=== PATIENT | female | born 1980 | race Caucasian/White ===

== ENCOUNTER → 2018-03-20 15:18 | Outpatient (CLI) | payer OTHER, MEDICAID, SELFPAY | DX: Z53.9 Procedure and treatment not carried out, unspecified reason (principal) | CPT/HCPCS: 87086 ==

== ENCOUNTER → 2018-03-20 15:51 | Outpatient (CLI) | payer OTHER, MEDICAID, SELFPAY ==
[2018-03-20 16:56] LABS: Appearance Urine UA CLEAR; Bilirubin Urine UA NEGATIVE (NEGATIVE); Color Urine UA YELLOW; Glucose Urine UA NEGATIVE (Normal); Ketones Urine UA TRACE (NEGATIVE); Leukocyte Esterase Urine UA NEGATIVE (NEGATIVE); Nitrite Urine UA Negative (Negative); Occult Blood Urine UA NEGATIVE (Negative); Protein Urine UA NEGATIVE (Negative); Specific Gravity Urine UA >=1.030 (1.000-1.035); Urobilinogen Urine UA 0.2 E.U./dL (0.2)
[2018-03-20 17:43] LABS: Add Manual Diff / Slide Review NO; Basophils Percent Auto 0.5 % (0-2); Eosinophils Percent Auto 3.8 % (2-4); Hemoglobin 13.2 g/dL (12.0-16.0); Lymphocytes Percent Auto 16.9 % (25-40); Mean Corpuscular HGB Conc 35.6 % (30-36); Mean Corpuscular Hemoglobin 32.6 PG (26-34); Mean Corpuscular Volume 91.7 fL (80-100); Neutrophils Absolute Auto 6100 /uL (3000-5900); Neutrophils Percent Auto 72.8 % (50-75); Platelet Count 236 X10^3/uL (150-400); Red Blood Cell Count 4.03 X10^6/uL (4.0-5.2); Red Cell Distribution Width 12.9 % (11.6-14.8); White Blood Cell Count 8.4 X10^3/uL (4.5-11.0)
[2018-03-20 18:54] LABS: Free T4, Direct Thyroxine 1.18 ng/dL (0.78-2.19)
[2018-03-20 19:08] LABS: Thyroid Stimulating Hormone 2.43 uIU/mL (0.47-4.68)
[2018-03-20 19:23] LABS: Hepatitis B Surface Antigen NEGATIVE s/c (NEGATIVE)
[2018-03-20 19:51] LABS: HIV 1 and 2 Antibody NEGATIVE (NEGATIVE); Hep C Virus Ab w/Reflex Quant NEGATIVE s/c (NEGATIVE)
[2018-03-22 14:52] LABS: HSV 2 IGG AB 1.19 index (< 0.90)
== END ==
DX: Z34.81 Encounter for supervision of other normal pregnancy, first trimester (principal)
CPT/HCPCS: 36415; 80055; 81003; 84439; 84443; 86695; 86696; 86703; 86787; 86803; 86850; 86900; 86901; 87086

== ENCOUNTER → 2018-04-10 13:44 | Outpatient (CLI) | payer OTHER, MEDICAID, SELFPAY ==
[2018-04-12 15:10] LABS: Sequential Screen 1st Trimeste FINAL REPORT PENDING
== END ==
DX: Z36.0 Encounter for antenatal screening for chromosomal anomalies (principal); Z34.81 Encounter for supervision of other normal pregnancy, first trimester; Z3A.12 12 weeks gestation of pregnancy
CPT/HCPCS: 36415; 84163; 84702

== ENCOUNTER → 2018-05-22 17:11 | Outpatient (CLI) | payer OTHER, MEDICAID, SELFPAY | DX: Z36.89 Encounter for other specified antenatal screening (principal); Z34.92 Encounter for supervision of normal pregnancy, unspecified, second trimester; Z3A.19 19 weeks gestation of pregnancy ==

== ENCOUNTER → 2018-05-30 14:12 | Outpatient (CLI) | payer OTHER, MEDICAID, SELFPAY | DX: Z36.9 Encounter for antenatal screening, unspecified (principal); Z3A.19 19 weeks gestation of pregnancy | CPT/HCPCS: 86336 ==

== ENCOUNTER → 2018-09-26 11:10 | Outpatient (CLI) | payer OTHER, MEDICAID, SELFPAY ==
[2018-09-27 14:09] LABS: Strep Grp B PCR NEG for Grp B Strep
== END ==
DX: Z34.83 Encounter for supervision of other normal pregnancy, third trimester (principal)
CPT/HCPCS: 87653

== ENCOUNTER 2018-10-23 11:54 | Outpatient (CLI) | payer OTHER, MEDICAID, SELFPAY | END 2018-10-23 12:45 | disposition home or self-care (01) | LOC: LABOR 12:32 → OB 15:50 | DX: O48.0 Post-term pregnancy (principal); Z3A.40 40 weeks gestation of pregnancy | CPT/HCPCS: 59025; G0378; G0379 ==

== ENCOUNTER 2018-10-24 06:51 | Inpatient (IN) | payer OTHER, MEDICAID, SELFPAY ==
--- NOTE | 2018-10-24 07:17 | PM.OBHP.1 ---
OB HPI History of Present Condition Chief complaint: INDUCTION Narrative: Jerilyn Menchaca is a 38 year old female five para three AB1 with an MONIKA of 10/19/2018 established by nine week ultrasound. The patient is now 40 and four 7th weeks . Patient is admitted for postdatism and [place] [facility]. Patient was evaluated previously had a Wild score nine. The patient's was uneventful. She remained normotensive throughout the . Her weight went went from 174 lb to 203 lb. Urines remained negative proved was and protein. She is blood type A-positive antibody screen negative. STD evaluations are all negative. 1st and 2nd trimester screening were negative. At 30 weeks her matter crit was 33%. Her glucose screen was -1 hour. Her group B strep was negative. Evaluation Evaluation Baseline heart rate: 130 Variability: Moderate (11-25) monitor accelerations: Present monitor decelerations: Absent Contraction Frequency (minutes): 5 Uterine Contraction Intensity: Mild Category of Tracing: I Non-invasive Membranes Rupture Test: negative [facility] Medical History Abnormal Pap smear of cervix (Chronic ~2007) Carpal tunnel syndrome (Chronic ~2013) GERD (gastroesophageal reflux disease) (Chronic) Hay fever (Chronic) Hemorrhoid (Chronic ~2009) Hyperthyroidism (Chronic) Scoliosis (Chronic) Chicken pox (Resolved) Family History Grandmother Age: 78 Hypertension Mother Age: 58 Hypertension Grandfather No problems noted. Grandfather No problems noted. Grandmother No problems noted. Meds Home Medications Medication Instructions Recorded Confirmed Type levothyroxine 100 mcg PO QAM #0 11/29/17 History omeprazole 20 mg capsule,delayed 20 mg PO DAILY #30 cap 09/29/18 Rx release Allergies Allergy/AdvReac Type Severity Reaction Status Date / Time amoxicillin [AMOXICILLIN] Allergy Mild hives Unverified 01/25/18 12:12 celecoxib [From Celebrex] Allergy Unknown Unverified 01/25/18 12:12 Review of Systems Review of Systems All systems reviewed & are unremarkable except as noted in HPI and below Exam Const General: cooperative and healthy appearing HENMT Head: normal to inspection Ears: hearing grossly normal bilaterally Nose: external nose normal Face and sinus: normal facial exam Mouth: oral mucosae normal, lip normal, tongue normal and moist mucous membranes Teeth and gingiva: dentition normal Throat: posterior oropharynx normal Eyes General: appearance normal, both eyes and all related structures Neck Neck: normal visual inspection and full ROM Chest Chest: normal inspection of the chest and normal palpation of entire chest wall Breast inspection: normal inspection of the breasts and normal inspection of the axillae Breast Palpation: normal palpation of the breasts and normal palpation of the axillae Resp Effort & Inspection: normal respiratory effort Auscultation: clear to auscultation bilaterally Cardio Palpation: normal PMI Rate: regular rate Rhythm: regular rhythm Heart Sounds: S1 normal and S2 normal GI Inspection: normal to inspection Palpation: soft and no hepatosplenomegaly Percussion: normal to percussion Auscultation: normal bowel sounds OB/External & Speculum: external exam normal Uterus Location (Fundal Height): 38 Presentation: vertex Estimated Weight (lbs): 7 Back/Spine/Pelvis Thoracic/Lumbar Spine: thoracic and lumbar spine normal to inspection Skin General: no rashes or lesions noted Neuro General: alert, oriented x3, tone normal and moves all extremities Cognition: normal cognition Speech: speech normal Gait: normal gait Motor: muscle tone normal throughout Sensory Exam: no sensory deficits noted Extrem General: normal to inspection and normal exam except as noted Psych Appearance: grossly normal and well kempt Mental Status: mental status grossly normal Speech and Movement: speech and movement normal Assessment and Plan (1) 40 weeks gestation of : Onset Date: ~10/24/18 Current visit: Yes Status: Acute Patient is [address] [facility] and is having contractions with small amount cervical dilatation. Plan is for induction of labor with Pitocin and rupture of membranes.
--- NOTE | 2018-10-24 07:28 | P.HPOB_ITS ---
OB HPI History of Present Condition Chief complaint: INDUCTION Narrative: Jerilyn Menchaca is a 38 year old female five para three AB1 with an MONIKA of 10/19/2018 established by nine week ultrasound. The patient is now 40 and four 7th weeks . Patient is admitted for postdatism and [place] [facility]. Patient was evaluated previously had a Wild score nine. The patient's was uneventful. She remained normotensive throughout the . Her weight went went from 174 lb to 203 lb. Urines remained negative proved was and protein. She is blood type A-positive antibody screen negative. STD evaluations are all negative. 1st and 2nd trimester screening were negative. At 30 weeks her matter crit was 33%. Her glucose screen was -1 hour. Her group B strep was negative. Evaluation Evaluation Baseline heart rate: 130 Variability: Moderate (11-25) monitor accelerations: Present monitor decelerations: Absent Contraction Frequency (minutes): 5 Uterine Contraction Intensity: Mild Category of Tracing: I Non-invasive Membranes Rupture Test: negative [facility] Medical History Abnormal Pap smear of cervix (Chronic ~2007) Carpal tunnel syndrome (Chronic ~2013) GERD (gastroesophageal reflux disease) (Chronic) Hay fever (Chronic) Hemorrhoid (Chronic ~2009) Hyperthyroidism (Chronic) Scoliosis (Chronic) Chicken pox (Resolved) Family History Grandmother Age: 78 Hypertension Mother Age: 58 Hypertension Grandfather No problems noted. Grandfather No problems noted. Grandmother No problems noted. Meds Home Medications Medication Instructions Recorded Confirmed Type levothyroxine 100 mcg PO QAM #0 11/29/17 History omeprazole 20 mg capsule,delayed 20 mg PO DAILY #30 cap 09/29/18 Rx release Allergies Allergy/AdvReac Type Severity Reaction Status Date / Time amoxicillin [AMOXICILLIN] Allergy Mild hives Unverified 01/25/18 12:12 celecoxib [From Celebrex] Allergy Unknown Unverified 01/25/18 12:12 Review of Systems Review of Systems All systems reviewed & are unremarkable except as noted in HPI and below Exam Const General: cooperative and healthy appearing HENMT Head: normal to inspection Ears: hearing grossly normal bilaterally Nose: external nose normal Face and sinus: normal facial exam Mouth: oral mucosae normal, lip normal, tongue normal and moist mucous membranes Teeth and gingiva: dentition normal Throat: posterior oropharynx normal Eyes General: appearance normal, both eyes and all related structures Neck Neck: normal visual inspection and full ROM Chest Chest: normal inspection of the chest and normal palpation of entire chest wall Breast inspection: normal inspection of the breasts and normal inspection of the axillae Breast Palpation: normal palpation of the breasts and normal palpation of the axillae Resp Effort & Inspection: normal respiratory effort Auscultation: clear to auscultation bilaterally Cardio Palpation: normal PMI Rate: regular rate Rhythm: regular rhythm Heart Sounds: S1 normal and S2 normal GI Inspection: normal to inspection Palpation: soft and no hepatosplenomegaly Percussion: normal to percussion Auscultation: normal bowel sounds OB/External & Speculum: external exam normal Uterus Location (Fundal Height): 38 Presentation: vertex Estimated Weight (lbs): 7 Back/Spine/Pelvis Thoracic/Lumbar Spine: thoracic and lumbar spine normal to inspection Skin General: no rashes or lesions noted Neuro General: alert, oriented x3, tone normal and moves all extremities Cognition: normal cognition Speech: speech normal Gait: normal gait Motor: muscle tone normal throughout Sensory Exam: no sensory deficits noted Extrem General: normal to inspection and normal exam except as noted Psych Appearance: grossly normal and well kempt Mental Status: mental status grossly normal Speech and Movement: speech and movement normal Assessment and Plan (1) 40 weeks gestation of : Onset Date: ~10/24/18 Current visit: Yes Status: Acute Patient is [address] [facility] and is having contractions with small amount cervical dilatation. Plan is for induction of labor with Pitocin and rupture of membranes.
[2018-10-24] MEDS: OXYTOCIN PREMIX 30 UNIT/500 ML PLAST..BAG IV (07:52)
[2018-10-24 08:10] LABS: Add Manual Diff / Slide Review NO; Basophils Percent Auto 0.2 % (0-2); Eosinophils Percent Auto 1.9 % (2-4); Hematocrit 37.6 % (36-46); Hemoglobin 12.7 g/dL (12.0-16.0); Lymphocytes Percent Auto 11.3 % (25-40); Mean Corpuscular HGB Conc 33.8 % (30-36); Mean Corpuscular Hemoglobin 32.3 PG (26-34); Mean Corpuscular Volume 95.6 fL (80-100); Monocytes Percent Auto 4.8 % (3-14); Neutrophils Absolute Auto 10900 /uL (1500-7000); Neutrophils Percent Auto 81.8 % (50-75); Platelet Count 200 X10^3/uL (150-400); Red Blood Cell Count 3.93 X10^6/uL (4.0-5.2); Red Cell Distribution Width 13.6 % (11.6-14.8); White Blood Cell Count 13.3 X10^3/uL (4.5-11.0)
--- NOTE | 2018-10-24 11:34 | PM.OBPRVD ---
Delivery date: 10/24/18 Induction method: per pitocin protocol Delivery augmentation: rupture of membranes Delivery monitor: external FHT Route of delivery: Episiotomy description: None Laceration description: None Estimated blood loss (mL): 300 Anesthesia type: Epidural Complications: Retained placenta with manual extraction Narrative: PROCEDURE: at 40w5d presented for IOL and was admitted to Labor and Delivery. The patient progressed through the 1st stage over 3 hours. The pt received pitocin for induction, with AROM performed with production of clear fluid. Pain was controlled with an epidural. The patient progressed through the 2nd stage over 17 minutes and delivered after 2 pushes a viable female infant with APGARs 9/9 at 11:02 via . The cord was clamped and cut after it stopped pulsing. The perineum and vagina were inspected with no lacerations noted. Gentle traction was applied to the umbilical cord to help with delivery of the placenta. Shearing could be felt along the cord, and so no further traction was applied. A few minutes later, additional gentle traction was applied and the cord avulsed from the placenta with a large portion of the amniotic sac attached to the cord. The placenta was then manually removed. After removal, a moist lap was used to swipe the entirety of the uterus to ensure no retained products were present. The uterine wall felt smooth. The pts uterus was noted to be very firm with no vaginal bleeding. She will receive antibiotic prophylaxis due to the prolonged manual extraction. PREPROCEDURE DIAGNOSIS: Intrauterine at 40w5d GBS negative RH positive POSTPROCEDURE DIAGNOSIS: Intrauterine at 40w5d, delivered Same as preprocedure Cord avulsion with retained products of conception, manual extraction ROM APPEARANCE: Clear BABY A DELIVERY TIME: 11:02 BABY A OUTCOME: Viable BABY A WEIGHT: 7lb8.74oz (3423g) BABY A NUCHAL CORD: x1 with body cord BABY A CORD GASES OBTAINED: None PLACENTA DELIVERY TIME: 11:15 PLACENTA APPEARANCE: Fragmented but fully present Baby 1: Infant gender: Female Presentation: vertex position: Right Occiput Anterior Placenta delivery description: Manual Removal cord vessel description: 3 Vessels score (1 min): 9 score (5 min): 9 Plan for aftercare: 2g Ancef now due to prolonged manual extraction Normal care Monitor bleeding carefully support
[2018-10-24] MEDS: CEFAZOLIN 2 GM/100 ML FROZ.PIGGY IV (13:30)
[2018-10-24 13:47] VITALS: BP 124/77
[2018-10-24] MEDS: OXYCODONE/ACETAMINOPHEN 5/325 TABLET 1 TAB PO (16:00)
[2018-10-24] MEDS: OXYCODONE/ACETAMINOPHEN 5/325 TABLET 2 TAB PO ×2 (16:08→20:02)
[2018-10-24] MEDS: IBUPROFEN 600 MG TABLET PO ×2 (16:10→22:09)
[2018-10-25] MEDS: IBUPROFEN 600 MG TABLET PO ×2 (04:16→10:26)
[2018-10-25] MEDS: OXYCODONE/ACETAMINOPHEN 5/325 TABLET 1 TAB PO ×2 (05:05→08:58)
[2018-10-25 05:55] LABS: Add Manual Diff / Slide Review NO; Basophils Percent Auto 0.4 % (0-2); Eosinophils Percent Auto 2.7 % (2-4); Hematocrit 33.6 % (36-46); Hemoglobin 11.7 g/dL (12.0-16.0); Lymphocytes Percent Auto 12.2 % (25-40); Mean Corpuscular HGB Conc 34.8 % (30-36); Mean Corpuscular Hemoglobin 32.9 PG (26-34); Mean Corpuscular Volume 94.5 fL (80-100); Monocytes Percent Auto 5.9 % (3-14); Neutrophils Absolute Auto 11100 /uL (1500-7000); Neutrophils Percent Auto 78.8 % (50-75); Platelet Count 177 X10^3/uL (150-400); Red Blood Cell Count 3.56 X10^6/uL (4.0-5.2); Red Cell Distribution Width 13.2 % (11.6-14.8); White Blood Cell Count 14.2 X10^3/uL (4.5-11.0)
[2018-10-25] MEDS: DOCUSATE 250 MG CAPSULE PO (08:58)
[2018-10-25] MEDS: PRENATAL VIT,CALC/IRON/FOLIC 1 TABLET 1 TAB PO (08:58)
--- NOTE | 2018-10-25 12:02 | PM.OBDS.1 ---
Discharge Providers Date of admission: 10/24/18 06:51 Primary care physician: Terry Kate MD Consults: 10/24/18 12:06 Consult to Fish Technologist Routine Comment: Discharge provider: Terry Kate MD Discharge Date: 10/25/18 Summary Date Patient Seen: 10/25/18 Time Patient Seen: 12:03 Hospital Course: The patient is a 38-year-old white female five para four AB1. Patient was at almost 41 weeks and [place] with intermittent contractions for induction of labor. Membranes were ruptured and Pitocin was begun. She had a rapid 3 hr labor and spontaneous vaginal delivery of a live-born with scores of nine at 1 min nine at 5 min in good condition. There was no PCI item ear perineal tear. The placenta was retained and removed manually. The estimated blood loss is as documented in the medical record. Post delivery the patient has done well. She has had minimal bleeding. She is voiding and good volumes. She is taking p.o.. She has ambulate Peripartum Data Infant Delivery Method: Natural Vaginal Laceration description: None Procedures: Manual removal of placenta complications: none Discharge Diagnosis (1) 40 weeks gestation of : Status: Acute Status at Discharge Cognitive/behavioral status at discharge: Normal Functional status at discharge: independent ambulation Overall status at discharge: patient is back to baseline Time Spent with Patient Total time spent providing and/or coordinating discharge services: Less than 30 minutes Objective Labs Result Diagrams: 10/25/18 05:42 Labs: Laboratory Results - last 24 hr 10/25/18 05:42 WBC 14.2 H RBC 3.56 L Hgb 11.7 L Hct 33.6 L MCV 94.5 MCH 32.9 MCHC 34.8 RDW 13.2 Plt Count 177 Neut % (Auto) 78.8 H Lymph % (Auto) 12.2 L [place] % (Auto) 5.9 Eos % (Auto) 2.7 Baso % (Auto) 0.4 Neut # (Auto) 55729 H Discharge Plan Discharge Plan Patient Disposition: Home Discharge Med Rec/Prescriptions Prescriptions: New ibuprofen 600 mg Tablet 600 mg PO Q6H PRN (Reason: Pain, Mild (1-3)) Qty: 14 RF: 0 docusate sodium 250 mg Capsule 250 mg PO DAILY Qty: 14 RF: 0 lanolin [[id number]] Cream 1 applic Topical PRN PRN (Reason: Tenderness) Qty: 7 RF: 0 oxycodone-acetaminophen 5-325 mg Tablet 2 tab PO Q4HR PRN (Reason: pain) Qty: 14 RF: 0 [id number] [Prenatabs Rx] 29 mg iron- 1 mg Tablet 1 tab PO DAILY Qty: 30 RF: 0 Continue levothyroxine [Levo-T] 100 MCG tablet 100 mcg PO QAM Qty: 0 RF: 0 omeprazole 20 mg capsule,delayed release(DR/EC) 20 mg PO DAILY Qty: 30 RF: 1 Provider Discharge Instructions Diet: Diet as Tolerated Activity: Up ad aristides Skin/Wound/Dressing Care Report to your healthcare provider any signs of infection, such as:: chills, fever, increased pain, unusual drainage and unusual redness Discharge Data Primary Care Provider: Terry Kate Attending Provider: Iqra Licea Admit Date/Time: 10/24/18 06:51
--- NOTE | 2018-10-25 12:06 | P.DS_ITS ---
Discharge Providers Date of admission: 10/24/18 06:51 Primary care physician: Terry Kate MD Consults: 10/24/18 12:06 Consult to Consumer Affairs Director Routine Comment: Discharge provider: Terry Kate MD Discharge Date: 10/25/18 Summary Date Patient Seen: 10/25/18 Time Patient Seen: 12:03 Hospital Course: The patient is a 38-year-old white female five para four AB1. Patient was at almost 41 weeks and [place] with intermittent contractions for induction of labor. Membranes were ruptured and Pitocin was begun. She had a rapid 3 hr labor and spontaneous vaginal delivery of a live-born with scores of nine at 1 min nine at 5 min in good condition. There was no PCI item ear perineal tear. The placenta was retained and removed manually. The estimated blood loss is as documented in the medical record. Post delivery the patient has done well. She has had minimal bleeding. She is voiding and good volumes. She is taking p.o.. She has ambulate Peripartum Data Infant Delivery Method: Natural Vaginal Laceration description: None Procedures: Manual removal of placenta complications: none Discharge Diagnosis (1) 40 weeks gestation of : Status: Acute Status at Discharge Cognitive/behavioral status at discharge: Normal Functional status at discharge: independent ambulation Overall status at discharge: patient is back to baseline Time Spent with Patient Total time spent providing and/or coordinating discharge services: Less than 30 minutes Objective Labs Result Diagrams: 10/25/18 05:42 Labs: Laboratory Results - last 24 hr 10/25/18 05:42 WBC 14.2 H RBC 3.56 L Hgb 11.7 L Hct 33.6 L MCV 94.5 MCH 32.9 MCHC 34.8 RDW 13.2 Plt Count 177 Neut % (Auto) 78.8 H Lymph % (Auto) 12.2 L [place] % (Auto) 5.9 Eos % (Auto) 2.7 Baso % (Auto) 0.4 Neut # (Auto) 27281 H Discharge Plan Discharge Plan Patient Disposition: Home Discharge Med Rec/Prescriptions Prescriptions: New ibuprofen 600 mg Tablet 600 mg PO Q6H PRN (Reason: Pain, Mild (1-3)) Qty: 14 RF: 0 docusate sodium 250 mg Capsule 250 mg PO DAILY Qty: 14 RF: 0 lanolin [[id number]] Cream 1 applic Topical PRN PRN (Reason: Tenderness) Qty: 7 RF: 0 oxycodone-acetaminophen 5-325 mg Tablet 2 tab PO Q4HR PRN (Reason: pain) Qty: 14 RF: 0 [id number] [Prenatabs Rx] 29 mg iron- 1 mg Tablet 1 tab PO DAILY Qty: 30 RF: 0 Continue levothyroxine [Levo-T] 100 MCG tablet 100 mcg PO QAM Qty: 0 RF: 0 omeprazole 20 mg capsule,delayed release(DR/EC) 20 mg PO DAILY Qty: 30 RF: 1 Provider Discharge Instructions Diet: Diet as Tolerated Activity: Up ad aristides Skin/Wound/Dressing Care Report to your healthcare provider any signs of infection, such as:: chills, fever, increased pain, unusual drainage and unusual redness Discharge Data Primary Care Provider: Terry Kate Attending Provider: Iqra Licea Admit Date/Time: 10/24/18 06:51
[2018-10-25] MEDS: OXYCODONE/ACETAMINOPHEN 5/325 TABLET 2 TAB PO (12:41)
[2018-10-25 16:11] VITALS: BP 124/77; PULSE 88; RESP 18; TEMP 36.4
== END 2018-10-25 17:10 | disposition home or self-care (01) | DRG 541 ==
PROVIDERS: Admitting Provider Family Medicine; Visit Provider Family Medicine
DX: O48.0 Post-term pregnancy (principal); O73.0 Retained placenta without hemorrhage; Z3A.40 40 weeks gestation of pregnancy; Z37.0 Single live birth
CPT/HCPCS: 01967; 36415; 59025; 59050; 59409; 85025; 86850; 86900; 86901; G0379; J0690; J2590; J3010

== ENCOUNTER → 2022-04-05 11:39 | Outpatient (CLI) | payer OTHER, MEDICAID, SELFPAY ==
--- NOTE | 2022-04-05 11:40 | DI.MRI.S_ITS ---
PROCEDURE: MR LUMBAR SPINE WO CON INDICATIONS: Lumbar radiculopathy TECHNIQUE: Noncontrast sagittal T1 spin echo and T2 fast echo, sagittal STIR, and T2 fast spin echo through the lumbar spine. In cases with scoliosis, additional coronal T2 fast spin echo may be performed. COMPARISON: None. FINDINGS: Exaggerated lumbar lordosis. Otherwise normal alignment. Vertebral body heights maintained. No suspicious focal marrow signal abnormality or bone marrow edema. At L5-S1, diffuse disc bulge and a superimposed protrusion which is asymmetric to the right results in mild displacement of the descending right S1 nerve roots within the right subarticular zone (series 5, image 32). At the remaining levels, there is no greater than trace disc bulge. There is no spinal canal stenosis, neural foraminal narrowing, or evidence of focal nerve root impingement from T12-L1 through L4-L5. Normal position and appearance of the conus. Prevertebral and paraspinous soft tissues are normal. IMPRESSION: Disc protrusion causing displacement descending right S1 nerve roots within the right subarticular zone at L5-S1. Correlate for any corresponding right S1 radicular symptoms. Dictated by: Joe North M.D. on 04/05/2022 at 16:21 Approved by: Joe North M.D. on 04/05/2022 at 16:25
--- NOTE | 2022-04-05 11:40 | DI.MRI.S_ITS ---
PROCEDURE: MR PELVIS WO CON INDICATIONS: bilateral hip pain TECHNIQUE: Noncontrast coronal and axial T1 spin echo and STIR through the bony pelvis. COMPARISON: Outside Facility, RG, XR PELVIS WITH BILATERAL HIPS, 11/28/2020, 11:37. FINDINGS: Image quality: Excellent. Bones: Mild symmetric appearing bilateral hip joint osteoarthritic changes are seen with superior joint space narrowing and subchondral sclerosis. No marrow edema. No intraosseous lesions or fractures identified. No avascular necrosis of femoral head. The visualized lower lumbar spine appears normally aligned. Tendons: Mild bilateral distal gluteus medius and minimus tendinosis at their insertions on greater trochanter is seen, without associated muscle atrophy. The nearby proximal iliotibial band also appears intact. The iliopsoas tendon appears intact, without adjacent bursal fluid collections or evidence for impingement syndrome. The origin of the hamstring tendon is intact at the ischial tuberosity, as well as the associated sacrotuberous ligament. The straight and reflected heads of the rectus femoris muscle origin appear intact, as well as the conjoint tendon. No gross focal labral tear is noted in the absence of intra-articular contrast. Soft tissues: Visualized muscles demonstrate normal bulk and internal signal. No joint effusions. No free pelvic fluid. Bladder wall thickness is normal. Genitourinary structures and bowel loops appear normal where visualized. Small right ovarian cyst is seen measures 1.8 cm in size. IMPRESSION: 1. Symmetric appearing very mild bilateral hip joint osteoarthritis. No fracture or dislocation. No marrow edema. No evidence avascular necrosis of femoral head. 2. Mild bilateral distal gluteus medius and minimus tendinosis at their insertions on greater trochanter. No other muscle or tendon signal abnormality. 3. No evidence of focal labral tear in the absence of intra-articular contrast. Dictated by: Tino Cunningham M.D. on 04/05/2022 at 14:14 Approved by: Tino Cunningham M.D. on 04/05/2022 at 14:23
== END ==
PROVIDERS: PCP Physician Assistant Medical; Referring Provider Physical Medicine & Rehabilitation; Visit Provider Physical Medicine & Rehabilitation
DX: M41.9 Scoliosis, unspecified (principal); M51.17 Intervertebral disc disorders with radiculopathy, lumbosacral region; M25.551 Pain in right hip; M25.552 Pain in left hip; G89.29 Other chronic pain
CPT/HCPCS: 72148; 72195